=== PATIENT | male | born 1980 | race Caucasian/White ===

== ENCOUNTER 2022-01-11 12:24 | Emergency (ER) | payer OTHER ==
[~2022-01-11] VITALS: Ht 180.3 cm; Wt 77.1 kg
[~2022-01-11 12:24] MED LIST: GABAPENTIN300 MG PO
--- OUTSIDE RECORDS SUMMARY | 2022-01-11 12:26 | XMS ---
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 Current PHONE: [phone] Natalia has no Care Guidelines for this patient. EDariela VISIT COUNT (12 MO.) 1 [facility] Blank TOTAL 1 NOTE: Visits indicate total known visits. ED/UCC VISIT TRACKING (12 MO.) 01/11/2022 12:24 [facility] TYPE: Emergency COMPLAINT: - EAR INJ INPATIENT VISIT TRACKING (12 MO.) No inpatient visits to display in this time frame [email or web address]
[2022-01-11] MEDS ORDERED: ADULT ASPIRIN R81 MG PO (12:37)
[2022-01-11] MEDS ORDERED: CEPHALEXIN500 M1 PO (13:08)
== END 2022-01-11 14:11 | disposition home or self-care (01) ==
LOC: ED 12:24
DX: T16.2XXA Foreign body in left ear, initial encounter (principal); Z79.82 Long term (current) use of aspirin; Z79.899 Other long term (current) drug therapy
CPT/HCPCS: 99282; A9270